=== PATIENT | female | born 1995 | race Two or more races ===

== ENCOUNTER 2022-12-23 09:24 | Outpatient (CLI) | payer OTHER | END 2022-12-23 12:30 | disposition home or self-care (01) | LOC: PRENATAL 09:24 | PROVIDERS: ATTEND Obstetrics & Gynecology Maternal & Fetal Medicine | DX: O35.9XX0 Maternal care for (suspected) fetal abnormality and damage, unspecified, not applicable or unspecified (principal); O35.3XX0 Maternal care for (suspected) damage to fetus from viral disease in mother, not applicable or unspecified; Z3A.22 22 weeks gestation of pregnancy ==

== ENCOUNTER 2023-03-10 08:40 | Outpatient (CLI) | payer OTHER | END 2023-03-10 09:20 | disposition home or self-care (01) | LOC: PRENATAL 08:40 | PROVIDERS: ATTEND Obstetrics & Gynecology Maternal & Fetal Medicine | DX: O26.849 Uterine size-date discrepancy, unspecified trimester (principal); O36.8199 Decreased fetal movements, unspecified trimester, other fetus; Z3A.32 32 weeks gestation of pregnancy ==

== ENCOUNTER 2023-04-20 07:30 | Inpatient (IN) | payer OTHER ==
[~2023-04-20] VITALS: Ht 149.9 cm; Wt 3.2 kg
[2023-04-20] MEDS ORDERED: PRENATAL TABLE1 EAC5 PO (10:38)
[2023-04-23] MEDS ORDERED: IBU600 MG PO (08:05)
[2023-04-23] MEDS ORDERED: COLACE100 MG PO (08:06)
== END 2023-04-23 12:47 | disposition home or self-care (01) | DRG 788 ==
LOC: LDR 07:30 → O/R 17:36 → OB/GYN 17:38
PROVIDERS: ADMIT Obstetrics & Gynecology; ATTEND Obstetrics & Gynecology
PROC: 4A1HXCZ Monitoring of Products of Conception, Cardiac Rate, External Approach (ICD-10-PCS; 2023-04-20)
PROC: 10D00Z1 Extraction of Products of Conception, Low, Open Approach (ICD-10-PCS; principal; 2023-04-20 15:30)
DX: O32.1XX0 Maternal care for breech presentation, not applicable or unspecified (principal); Z3A.38 38 weeks gestation of pregnancy; Z37.0 Single live birth; Z20.822 Contact with and (suspected) exposure to COVID-19